=== PATIENT | male | born 1965 | race African-American/Black ===

== ENCOUNTER 2025-06-11 16:50 | Emergency (ER) | payer SELFPAY ==
[~2025-06-11 16:50] MED LIST: Iopamidol-370 76% 500 ML MDV (1 ML CHARGE) ONE
[2025-06-11 18:25] LABS: #Basophils 0.03 10x3/uL (0.0-0.2); #Eosinophils 0.75 10x3/uL (0.0-0.7); #Monocytes 0.40 10x3/uL (0.11-0.59); #Neutrophils 2.41 10x3/uL (1.40-6.50); %Basophils 0.6 % (0.0-1.0); %Eosinophils 14.8 % (0.0-10.0); %Lymphocytes 29.1 % (21.0-51.0); %Monocytes 7.9 % (0.0-10.0); %Neutrophils 47.4 % (42.0-75.0); Hematocrit 39.1 % (42.0-52.0); Hemoglobin 12.1 g/dL (14.0-18.0); Mean Corpuscular Hemoglobin 27.9 pg (27.0-31.0); Mean Corpuscular Volume 90.3 fL (78.0-98.0); Platelet Count 187 10x3/uL (130-400); Red Blood Cell (RBC) Count 4.33 mill/uL (4.70-6.10); White Blood Cell (WBC) Count 5.08 10x3/uL (4.8-10.8)
[2025-06-11 18:38] LABS: Bacteria/HPF None Seen HPF (None Seen); CAUTI Indications for Culture Dysuria,urgency,freq; Glucose, Urine (Dipstick) Normal (Negative); Leukocyte Negative Leu/uL (Negative); Protein, Urine (Dipstick) Negative (Neg-Trace); RBC/HPF 0-3 HPF (0-3); Specific Gravity, Urine 1.012 (1.002-1.036); WBC/HPF 0-3 HPF (0-3)
[2025-06-11 18:42] LABS: Urine Culture Reflex No No
[2025-06-11 18:53] LABS: ALT (SGPT) 12 U/L (Less than 45); AST (SGOT) 23 U/L (11-34); Albumin 3.7 g/dL (3.1-4.5); Alkaline Phosphatase 77 U/L (40-110); Anion Gap 13 mmol/L (10-20); BUN (Urea Nitrogen) 10 mg/dL (8.4-25.7); Bilirubin, Total 0.2 mg/dL (0.3-1.2); Calc. Creatinine Clearance 0 mL/min (70-130); Calcium 9.3 mg/dL (7.8-10.44); Carbon Dioxide 23 mmol/L (22-29); Chloride 107 mmol/L (98-107); Globulin 3.4 g/dL (2.4-3.5); Glucose 89 mg/dL (70-105); Lipase 11 U/L (8-78); Potassium 4.6 mmol/L (3.5-5.1); Sodium 138 mmol/L (136-145)
== END 2025-06-11 20:18 | disposition home or self-care (01) ==
LOC: ERS 16:50
DX: K94.23 Gastrostomy malfunction (principal)
CPT/HCPCS: 36415; 74177; 80053; 81001; 83690; 85025; Q9967